=== PATIENT | female | born 1975 | race Caucasian/White ===

== ENCOUNTER → 2021-06-09 | Outpatient (CLI) | payer OTHER ==
[~2021-06-09] MED LIST: AUGMENTIN 875-1 EACH PO
== END ==
LOC: MAMO 05-16 15:30
DX: Z12.31 Encounter for screening mammogram for malignant neoplasm of breast (principal)
CPT/HCPCS: 77063; 77067

== ENCOUNTER → 2021-08-10 | Outpatient (CLI) | payer OTHER ==
[~2021-08-10] MED LIST changes: +DOCUSATE SODIU250 MG PO; +GLUCOPHAGE 500500 MG PO; +HYDROCODONE-AC1 EACH PO; +IBUPROFEN600 MG PO
[2021-08-10 11:16] LABS: HEMOGLOBIN 13.4 gm/dl (12.3-15.3); RED BLOOD COUNT 4.33 M/UL (4.00-5.10); WHITE BLOOD COUNT 8.2 K/UL (4.5-11.0)
[2021-08-10 11:53] LABS: BUN/CREATININE RATIO 16 (0-10)
== END ==
LOC: OPSV2 10:00
PROVIDERS: Obstetrics & Gynecology
DX: Z01.818 Encounter for other preprocedural examination (principal); D21.9 Benign neoplasm of connective and other soft tissue, unspecified
CPT/HCPCS: 36415; 80053; 81001; 85025; 93005

== ENCOUNTER → 2021-08-14 | Day surgery (SDC) | payer OTHER | END | disposition home or self-care (01) | LOC: OR 06:27 | DX: D25.9 Leiomyoma of uterus, unspecified (principal); N93.9 Abnormal uterine and vaginal bleeding, unspecified; K21.9 Gastro-esophageal reflux disease without esophagitis; E11.65 Type 2 diabetes mellitus with hyperglycemia; E78.00 Pure hypercholesterolemia, unspecified; Z79.84 Long term (current) use of oral hypoglycemic drugs | CPT/HCPCS: 82962; 84703; C1769; J0690; J1100; J1885; J2001; J2250; J2370; J2405; J2704; J2710; J3010; J7030; J7120 ==